=== PATIENT | male | born 1995 | race Two or more races ===

== ENCOUNTER 2020-08-17 12:49 | Inpatient (IN) | payer OTHER ==
[~2020-08-17] VITALS: Ht 170.2 cm; Wt 56.7 kg
[2020-08-18] MEDS ORDERED: CIPRO500 MG PO (12:22)
[2020-08-18] MEDS ORDERED: PROTONIX40 MG PO (12:23)
[2020-08-18] MEDS ORDERED: ULTRACET PO (12:24)
== END 2020-08-18 13:35 | disposition home or self-care (01) | DRG 343 ==
LOC: ER 12:49 → O/R 17:45 → SEC-K 17:45 → O/R 23:23
PROVIDERS: ADMIT Surgery; ATTEND Surgery
PROC: BW21YZZ Computerized Tomography (CT Scan) of Abdomen and Pelvis using Other Contrast (ICD-10-PCS; 2020-08-17)
PROC: 0DTJ0ZZ Resection of Appendix, Open Approach (ICD-10-PCS; principal; 2020-08-17 21:00)
DX: K35.890 Other acute appendicitis without perforation or gangrene (principal); Z20.822 Contact with and (suspected) exposure to COVID-19